=== PATIENT | female | born 1965 ===

== ENCOUNTER 2022-06-04 10:08 | Emergency (ER) | payer SELFPAY ==
[2022-06-04] MEDS ORDERED: Ibuprofen 800 MG TAB ONE (10:41)
[2022-06-04] MEDS ORDERED: HYDROcodone/Acetaminophen 10/325 mg Tablet ONE (10:41)
[2022-06-04 11:06] LABS: Bilirubin Negative (Negative); Blood, Urine Negative (Negative); Clarity Slightly Cloudy (Clear); Glucose, Urine (Dipstick) Negative (Negative); Ketone, Urine Negative (Negative); Leukocyte Negative (Negative); Nitrite Negative (Negative); Protein, Urine (Dipstick) Negative (Neg-Trace); Specific Gravity, Urine 1.025 (1.005-1.030); Urobilinogen 0.2 mg/dL (Less than 2)
== END 2022-06-04 11:26 | disposition home or self-care (01) ==
LOC: BURERS 10:08
DX: S20.224A Contusion of middle back wall of thorax, initial encounter (principal); I10 Essential (primary) hypertension; J45.909 Unspecified asthma, uncomplicated; F17.210 Nicotine dependence, cigarettes, uncomplicated; Z79.899 Other long term (current) drug therapy; W22.8XXA Striking against or struck by other objects, initial encounter
CPT/HCPCS: 71046; 81003